=== PATIENT | female | born 1970 | race Caucasian/White ===

== ENCOUNTER 2017-09-10 04:01 | Emergency (ER) | payer OTHER ==
[~2017-09-10] VITALS: Ht 182.9 cm; Wt 92.1 kg
[~2017-09-10 04:01] MED LIST: CYCL-36 PO; HYDR-3533 PO; NAPR-576 PO; PRED20 PO
[2017-09-10 04:05] VITALS: BP 180/96; PULSE 79; RESP 20; TEMP 97.7; O2SAT 96
[2017-09-10] MEDS ORDERED: AUGM875T3 PO (04:20)
--- NOTE | 2017-09-10 04:37 | PD ---
HPI Chief Complaint: Back/ Neck Pain or Injury Time Seen by Provider: 04:16 Travel History International Travel<30 days: No Contact w/Intl Traveler<30days: No Traveled to known affect area: No History of Present Illness HPI The patient is a 47-year-old female that complains of neck pain which goes up and to the back of her skull and gives her a headache. This is been going on for about a week. She does have a history of neck pain in the past and has been successfully treated with Flexeril, steroids and nonsteroidals. She states she got several shots when she came in last year for her neck pain and the seemed to work. This time the pain seems to go upwards into the occipital area rather than down to the shoulders and arms. She states she has difficulty turning her neck because it hurts. She states she got good relief from going to the chiropractor who adjusted her neck. The patient is currently taking antibiotics and steroids for 5 days for a possible strep pharyngitis. She has already completed the steroid course. They did not swab the throat, there simply treating her as though she had a strep pharyngitis. The antibiotic is Augmentin and the clavulanate portion may be nauseating the patient. PFSH Past Medical History Medical History: Denies Significant Hx Diminished Hearing: No Immunizations Current: Yes Tetanus Vaccination: > 5 Years Influenza Vaccination: No ?: Unknown LMP: Two weeks ago Past Surgical History Surgical History: No Previous Surgery Social History Alcohol Use: No Tobacco Use: Yes (6-7 cigarettes DAILY) Substance Use: No Allergies-Medications (Allergen,Severity, Reaction): Coded Allergies: No Known Allergies (Verified Adverse Reaction, Unknown, 09/10/17) Reported Meds & Prescriptions Reported Meds & Active Scripts Active Percocet (Oxycodone-Acetaminophen) 5-325 mg Tab 1 Tab PO Q4H PRN Prochlorperazine Maleate 10 Mg Tab 10 Mg PO Q6H PRN Flexeril (Cyclobenzaprine HCl) 10 Mg Tab 10 Mg PO TID Naproxen 500 Mg Tab 500 Mg PO BID Reported Augmentin (Amoxicillin-Clavulanate) 875-125 Mg Tab 1 Tab PO BID Review of Systems Except as stated in HPI: all other systems reviewed are Neg Physical Exam Narrative GENERAL: The patient is alert, oriented 3 in moderate apparent distress with her neck discomfort. Her vital signs show blood pressure 180/96 but are otherwise normal. SKIN: Focused skin assessment warm/dry. HEAD: Atraumatic. Normocephalic. EYES: Pupils equal and round. No scleral icterus. No injection or drainage. ENT: No nasal bleeding or discharge. Mucous membranes pink and moist. NECK: Trachea midline. No JVD. There is tenderness on the upper neck: The musculature. There is no posterior spinous tenderness or deformity present on the neck. CARDIOVASCULAR: Regular rate and rhythm. No murmur appreciated. RESPIRATORY: No accessory muscle use. Clear to auscultation. Breath sounds equal bilaterally. GASTROINTESTINAL: Abdomen soft, non-tender, nondistended. Hepatic and splenic margins not palpable. MUSCULOSKELETAL: No obvious deformities. No clubbing. No cyanosis. No edema. NEUROLOGICAL: Awake and alert. No obvious cranial nerve deficits. Motor grossly within normal limits. Normal speech. PSYCHIATRIC: Appropriate mood and affect; insight and judgment normal. Data Data Last Documented VS Vital Signs Date Time Temp Pulse Resp B/P (MAP) Pulse Ox O2 Delivery O2 Flow Rate FiO2 09/10/17 04:05 97.7 79 20 180/96 (124) [address] Cerv Spine W/O Contrast (09/10/17 04:33) Ketorolac Inj (Toradol Inj) (09/10/17 04:45) Orphenadrine Inj (Norflex Inj) (09/10/17 04:45) Prochlorperazine Inj (Compazine Inj) (09/10/17 05:00) Splint Or Brace Apply/Monitor (09/10/17 05:06) Collar Soft Cervical (09/10/17 ) Complete Blood Count With Diff (09/10/17 05:26) Comprehensive Metabolic Panel (09/10/17 05:26) Lipase (09/10/17 05:26) Urinalysis - C+S If Indicated (09/10/17 05:26) Iv Access Insert/Monitor (09/10/17 05:26) Ecg Monitoring (09/10/17 05:26) Oximetry (09/10/17 05:26) Ondansetron Inj (Zofran Inj) (09/10/17 05:30) Sodium Chlor 0.9% 1000 Ml Inj (Ns 1000 M (11/22/17 05:26) Sodium Chloride 0.9% Flush (Ns Flush) (09/10/17 05:30) Labs Laboratory Tests Test 09/10/17 05:30 MDM Medical Decision Making Medical Screen Exam Complete: Yes Emergency Medical Condition: Yes Medical Record Reviewed: Yes Interpretation(s) The CT of the cervical spine shows age indeterminate right foraminal disc protrusion at C6/C7 probably impinging on the exiting right C7 nerve root. Also noted are fairly chronic appearing findings at C5/C6 with diffuse disc osteophyte complex and right greater than left facet osteoarthritis causing mild spinal stenosis and moderate right foraminal stenosis. Differential Diagnosis Herniated cervical disc, cervical radiculopathy, myofascial muscle strain of neck muscles, trapezius strain, viral syndrome, strep pharyngitis, medication side effect Narrative Course The patient appears to have a cervical myofascial strain. She is given Flexeril and naproxen. She is also given Compazine for her nausea. The patient may also have a medication side effect from the Augmentin. The Augmentin may be causing her nausea. It is now 0549 and the patients nausea has resolved. Diagnosis Primary Impression: Cervical myofascial strain Additional Impression: Medication side effect Additional Instructions: The nausea medication is taken every 6 hours as needed. The Naprosyn is taken regularly, 500 mg twice daily. The Flexeril is taken one tablet 3 times a day. The Flexeril and the Lortab 5 can both make you sleepy and dizzy and you should not drink alcohol or drive on these medications. Med/Other Pt SpecificInfo: Prescription(s) given Scripts Oxycodone-Acetaminophen (Percocet) 5-325 mg Tab 1 TAB PO Q4H Y for PAIN, #20 TAB 0 Refills Prov: Terry Parada MD 09/10/17 Prochlorperazine Maleate (Prochlorperazine Maleate) 10 Mg Tab 10 MG PO Q6H Y for NAUSEA OR VOMITING, #30 TAB 0 Refills Prov: Terry Parada MD 09/10/17 Cyclobenzaprine (Flexeril) 10 Mg Tab 10 MG PO TID for Muscle Spasm, #60 TAB 0 Refills Prov: Terry Parada MD 09/10/17 Naproxen (Naproxen) 500 Mg Tab 500 MG PO BID, #30 TAB 0 Refills Prov: Terry Parada MD 09/10/17 Disposition: 01 DISCHARGE HOME Condition: Stable Terry Parada MD Sep 10, 2017 04:37
[2017-09-10] MEDS ORDERED: KETOROLAC TROMETHAMINE 60 MG/2 ML (IM) VIAL IM ONE (04:45)
[2017-09-10] MEDS ORDERED: ORPHENADRINE INJ 60 MG/2 ML AMP IM ONE (04:45)
[2017-09-10] MEDS ORDERED: CYCL10TA PO (04:46)
[2017-09-10] MEDS ORDERED: NAPR500T2 PO (04:46)
[2017-09-10] MEDS ORDERED: PROCHLORPERAZINE INJ 10 MG/2 ML VIAL IM ONE (05:00)
[2017-09-10] MEDS ORDERED: PROC10TA PO (05:09)
--- NOTE | 2017-09-10 05:18 | RADRPT ---
EXAM DATE/TIME: 09/10/2017 04:50 [facility] COMPARISON: No previous studies available for comparison. INDICATIONS : Neck pain. Nausea. Cephalgia. RADIATION DOSE: 19.06 CTDIvol (mGy) MEDICAL HISTORY : None SURGICAL HISTORY : None. ENCOUNTER: Initial ACUITY: 1 week PAIN SCALE: 10/10 LOCATION: Bilateral posterior neck TECHNIQUE: Volumetric scanning of the cervical spine was performed. Multiplanar reconstructions in the sagittal, coronal and oblique axial planes were performed. Using automated exposure control and adjustment o f the mA and/or kV according to patient size, radiation dose was kept as low as reasonably achievable to obtain optimal diagnostic quality images. DICOM format image data is available electronically f or review and comparison. FINDINGS: VERTEBRAE: Normal vertebral body height. ALIGNMENT: No evidence of subluxation. C2-C3: The bony spinal canal is normal in size. No evidence of disc bulge or herniation. The neural forami na are bilaterally patent. C3-C4: The bony spinal canal is normal in size. No evidence of disc bulge or herniation. The neural forami na are bilaterally patent. C4-C5: The bony spinal canal is normal in size. No evidence of disc bulge or herniation. The neural forami na are bilaterally patent. C5-C6: The disc as mild to moderate loss of height. Small, broad/diffuse disc osteophyte complex present and there is right greater than left uncovertebral and facet osteoarthritis. Moderate right and mild lef t foraminal stenosis. There is mild spinal stenosis. C6-C7: The disc as mild loss of height. There is a small, broad but especially right foraminal disc protrusi on. Moderate right foraminal stenosis. C7-T1: The bony spinal canal is normal in size. No evidence of disc bulge or herniation. The neural forami na are bilaterally patent. CONCLUSION: 1. Age-indeterminate right foraminal disc protrusion at C6/C7, probably impinging on the exiting righ t C7 nerve root. 2. Fairly chronic appearing findings at C5/C6 with a diffuse disc osteophyte complex and right greate r than left uncovertebral and facet osteoarthritis causing mild spinal stenosis and moderate right fo raminal stenosis. Agus Berman MD on September 10, 2017 at 5:13 Board Certified Radiologist. This report was verified electronically.
[2017-09-10] MEDS ORDERED: SODIUM CHLOR 0.9% 1000 ML INJ 1,000 ML IV SCH (05:26)
[2017-09-10] MEDS ORDERED: ONDANSETRON HCL 4 MG/2 ML VIAL IVP ONE (05:30)
[2017-09-10] MEDS ORDERED: SODIUM CHLORIDE 0.9% FLUSH 10 ML FLUSH IV FLUSH PRN (05:30)
[2017-09-10] MEDS ORDERED: PERC5TAB12 PO (05:58)
[2017-09-10 06:12] LABS: AUTOMATED NEUTROPHIL # 4.8 TH/MM3 (1.8-7.7); BASOPHIL # 0.1 TH/MM3 (0-0.2); BASOPHIL % 1.2 % (0.0-2.0); EOSINOPHIL # 0.2 TH/MM3 (0-0.4); EOSINOPHIL % 2.7 % (0.0-4.0); HEMATOCRIT 39.7 % (35.0-46.0); LYMPH % 38.5 % (9.0-44.0); LYMPHOCYTE # 3.5 TH/MM3 (1.0-4.8); MEAN CELL VOLUME 96.5 FL (80.0-100.0); MEAN CORPUSCULAR HEMOGLOBIN 32.2 PG (27.0-34.0); MEAN CORPUSCULAR HGB CONC 33.3 % (32.0-36.0); MONO % 5.4 % (0.0-8.0); NEUT % 52.2 % (16.0-70.0); PLATELET COUNT 276 TH/MM3 (150-450); RED BLOOD COUNT 4.11 MIL/MM3 (4.00-5.30); RED CELL DISTRIBUTION WIDTH 12.4 % (11.6-17.2); WHITE BLOOD COUNT 9.1 TH/MM3 (4.0-11.0)
[2017-09-10 06:13] LABS: CHLORIDE 102 MEQ/L (98-107); POTASSIUM 3.4 MEQ/L (3.5-5.1); SODIUM (NA) 139 MEQ/L (136-145)
[2017-09-10 06:17] LABS: ANION GAP 8 MEQ/L (5-15); BICARBONATE 29.2 MEQ/L (21.0-32.0); BLOOD UREA NITROGEN 11 MG/DL (7-18)
[2017-09-10 06:19] LABS: ALT (GPT) 43 U/L (10-53); AST (GOT) 16 U/L (15-37)
[2017-09-10 06:20] LABS: GLOMERULAR FILTRATION RATE 73 ML/MIN (>89)
[2017-09-10 06:21] LABS: TOTAL BILIRUBIN ADULT 0.3 MG/DL (0.2-1.0)
[2017-09-10 06:22] LABS: ALKALINE PHOSPHATASE 49 U/L (45-117)
[2017-09-10 06:24] LABS: HEMO FLAGS DIFF FINAL
[2017-09-10 06:35] VITALS: BP 178/82
== END 2017-09-10 06:38 | disposition home or self-care (01) ==
LOC: PHED 04:01
DX: S16.1XXA Strain of muscle, fascia and tendon at neck level, initial encounter (principal); T88.7XXA Unspecified adverse effect of drug or medicament, initial encounter; M25.78 Osteophyte, vertebrae; M48.02 Spinal stenosis, cervical region; F17.210 Nicotine dependence, cigarettes, uncomplicated; Z79.2 Long term (current) use of antibiotics; Z79.899 Other long term (current) drug therapy
CPT/HCPCS: 72125; 80053; 83690; 85025; 96361; 96372; 96374; 99285; J0780; J1885; J2360; J2405; J7030; L0120